=== PATIENT | female | born 2000 ===

== ENCOUNTER 2023-10-18 10:45 | Emergency (ER) | payer SELFPAY ==
[~2023-10-18] VITALS: Ht 165.1 cm; Wt 104.5 kg
[2023-10-18 10:58] VITALS: TEMP 98.5
[2023-10-18] MEDS ORDERED: CIPRODEX OT (12:26)
[2023-10-18] MEDS ORDERED: AMOXICILLIN 8751 TAB PO (12:26)
[2023-10-18 12:40] VITALS: BP 114/78; PULSE 85
== END 2023-10-18 12:40 | disposition home or self-care (01) ==
LOC: COL.ER 10:45
DX: H66.92 Otitis media, unspecified, left ear (principal); H60.92 Unspecified otitis externa, left ear